=== PATIENT | female | born 1985 | race African-American/Black ===

== ENCOUNTER 2020-10-15 12:33 | Emergency (ER) | payer SELFPAY ==
[~2020-10-15] VITALS: Ht 165.1 cm; Wt 54.0 kg
--- NOTE | 2020-10-15 13:58 | NUR ---
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
[2020-10-15 14:34] LABS: BASOPHILS % (AUTO) 1 % (0-1); EOSINOPHILS % (AUTO) 1 % (1-7); LYMPHOCYTES % (AUTO) 52 % (22-44); MEAN CORPUSCULAR HGB CONC 33.1 g/dL (32.4-35.8); MEAN PLATELET VOLUME 8.2 fL (7.4-10.4); MONOCYTES % (AUTO) 7 % (2-9); NEUTROPHILS % (AUTO) 40 % (42-75); PLATELET COUNT 202 x10^3/uL (130-400); RED BLOOD COUNT 4.61 x10^6/uL (3.82-5.3); RED CELL DISTRIBUTION WIDTH 14.4 % (9.6-15.2)
[2020-10-15 14:42] LABS: ANION GAP 5 mmol/L (5-15); CALCIUM 8.9 mg/dL (8.5-10.1); CHLORIDE 109 mmol/L (98-107)
[2020-10-15 14:43] LABS: ALBUMIN 3.8 g/dL (3.4-5.0)
[2020-10-15 14:48] LABS: ALANINE AMINOTRANSFERASE 21 U/L (12-78); ALKALINE PHOSPHATASE 63 U/L (45-117); BILIRUBIN,TOTAL 0.4 mg/dL (0.2-1.0); TOTAL PROTEIN 7.3 g/dL (6.4-8.2)
[2020-10-15] MEDS ORDERED: ONDANSETRON ODT 4 MG ONE (14:59)
[2020-10-15] MEDS ORDERED: ONDANSETRON ODT 4 MG PO ONE (15:00)
[2020-10-15 15:15] LABS: MICROSCOPIC NOT IND
[2020-10-15 15:43] LABS: MD SCAN
[2020-10-15 16:01] VITALS: BP 101/74
--- NOTE | 2020-10-15 16:42 | NUR ---
PT REC'VD DISCHARGE EDUCATION AND INSTRUCTIONS. PT HAD NO FURTHER QUESTIONS. PT AMBULATED TO DC AREA, STEADY GAIT.
== END 2020-10-15 16:45 | disposition home or self-care (01) ==
LOC: ED 16:17
DX: K59.00 Constipation, unspecified (principal); R11.2 Nausea with vomiting, unspecified; R19.7 Diarrhea, unspecified; R11.0 Nausea; R10.9 Unspecified abdominal pain; F17.210 Nicotine dependence, cigarettes, uncomplicated
CPT/HCPCS: 36415; 74021; 80053; 81003; 83690; 84703; 85025; 99284; 99406; Q0162